=== PATIENT | male | born 1950 | race Caucasian/White ===

== ENCOUNTER 2017-09-06 15:26 | Observation (INO) | payer OTHER ==
[~2017-09-06] VITALS: Ht 182.9 cm; Wt 131.8 kg
--- NOTE | ~2017-09-06 | HEMODYNAMI ---
PATIENT:SANTIAGO GIBSON MEDICAL RECORD: [id number] : 46 LOCATION:[place] [address] ADMISSION DATE: 09/06/17 Generatedon:09/07/201714:04 Patient name: SANTIAGO GIBSON Patient #: [id number] SSN: : 1950 Date of study: 09/07/2017 Page: Of Hemodynamic Procedure Report Patient Data Patient Demographics Procedure consent was obtained First Name: SANTIAGO Gender: Male Last Name: PAIGE : 1950 Patient #: [id number] Age: 67 year(s) Race: Unknown Additional ID: [id number] Contact details Address: [place] [address] State: [facility] Zip code: [address] Past Medical History Allergies: No known allergies Admission Admission Data Admission Date: 09/06/2017 Admission Time: 15:26 Room #: [facility] Procedure Procedure Types Cath Procedure Diagnostic Procedure LHC LHC w/Coronaries Miscellaneous Procedures Moderate Sedation up to 30 minutes Procedure Description Procedure Date Procedure Date: 09/07/2017 Procedure Start Time: 13:47 Procedure End Time: 14:03 Procedure Staff Name Function Issac Victor MD Performing Physician Evelyn Tate RT Monitor Pina Jones RT Scrub Evan Chandra RN Nurse Procedure Data Cath Procedure Fluoroscopy Diagnostic fluoroscopy Total fluoroscopy Time: 3.7 time: 3.7 min min Diagnostic fluoroscopy Total fluoroscopy dose: dose: 1255 mGy 1255 mGy Contrast Material Contrast Material Type Amount (ml) Isovue 300 96 Entry Location Entry Primary Successful Side Size Upsize Upsize Entry Closure Flores ccessful Closure Location (Fr) 1 (Fr) 2 (Fr) Remarks Device Remarks Radial Right 6 Fr Mechanical artery Short Compression Estimated blood loss: 5 ml Diagnostic catheters Device Type Used For End Catheter Placement Terumo 5Fr Natanael 110cm LV Angiography catheter Terumo 5Fr Natanael 110cm Left Coronary catheter Angiography Diagnostic Terumo 5Fr Right Coronary Hometown 110cm catheter Angiography Procedure Complications No complications Procedure Medications Medication Administration Route Dosage Oxygen NC 2 l/min Lidocaine 2% added to field 20 Heparin Flush Bag added to field 2 bags (1000units/500ml NS) 0.9% NaCl I.V. 100 ml/hr Versed I.V. 1 mg Fentanyl I.V. 50 mcg Radial Cocktail I.A. 1 syringe (Verapomil 2mg/Nitro 400mcg/Heparin 1500units) Versed I.V. 1 mg Fentanyl I.V. 50 mcg Hemodynamics Rest Heart Rate: 81 (bpm) Pressure Samples Time Site Value (mmHg) Purpose Heart Use Rate(bpm) 13:51 LV 169/-3,10 EDP 83 13:51 AO 164/22(113) Pullback 84 13:51 LV 169/-1,13 Pullback 84 Gradients Valve Time Site 1 Site 2 Mean SEP/DFP Peak To Heart Use (mmHg) (sec/min) Peak Rate (mmHg) (bpm) Aortic 13:51 LV AO 2 3 5 84 169/-1,13 164/22(113) Calculations Valve P-P Mean Valve Index Valve Source Name Gradient Area Flow (cm2) Aortic 5 2 5 2 Snapshots Pre Cath Intra NCS Post Cath Vital Signs Time Heart Resp SPO2 etCO2 NIBP (mmHg) Rhythm Pain Sedation Rate (ipm) (%) (mmHg) Status Level (bpm) 13:42:25 80 18 95 40.5 153/97(129) NSR 0 (11) 10(A) , No pain 13:47:09 81 16 94 9.7 157/101(123) NSR 0 (11) 9(A) , No pain 13:51:52 84 19 94 20.2 141/81(106) NSR 0 (11) 9(A) , No pain 13:56:33 84 20 95 39 135/84(115) NSR 0 (11) 9(A) , No pain 14:01:18 81 19 94 29.2 135/83(111) NSR 0 (11) 10(A) , No pain Medications Time Medication Route Dose Verified Delivered Reason Notes Effectiveness by by 13:44:01 Oxygen NC 2 l/min Issac Buffie used for Valente Chandra metal framer 13:44:19 Lidocaine 2% added 20ml Issac Issac for local to vial Valente Victor MD anesthetic field 13:44:25 Heparin Flush added 2 bags Issac Issac used for Bag to Valente Victor MD procedure (1000units/500ml field NS) 13:44:34 0.9% NaCl I.V. 100 Issac Buffie Per ml/hr Valente Chandra RN physician 13:44:42 Versed I.V. 1 mg Issac Buffie for sedation Valente Chandra RN 13:44:47 Fentanyl I.V. 50 mcg Issac Buffie for sedation Valente Chandra RN 13:50:16 Radial Cocktail I.A. 1 Issac Issac for (Verapomil syringe Valente Victor MD vasodilation 2mg/Nitro 400mcg/Heparin 1500units) 13:50:21 Versed I.V. 1 mg Issac Buffie for sedation Valente Chandra RN 13:50:25 Fentanyl I.V. 50 mcg Issac Buffie for sedation Valente Chandra RN Procedure Log Time Note 13:21:31 Evelyn Counts RT(R) sent for patient. Start room use. 13:21:33 Time tracking: Regular hours 13:21:36 Plan of Care:Hemodynamics will remain stable., Cardiac rhythm will remain stable., Comfort level will be maintained., Respiratory function will remain adequate., Patient/ family verbilizes understanding of procedure., Procedure tolerated without complication., Recovers from procedure without complications.. 13:23:28 Patient received from Med II to CCL 1 Alert and oriented. Tansferred to table in Supine position. 13:23:29 Warm blankets applied, and timothy hugger turned on for patient comfort. 13:23:30 Correct patient and procedure confirmed by team. 13:23:31 Signed procedure consent form obtained from patient. 13:23:32 ECG and BP/O2 sat monitors applied to patient. 13:41:27 Vital chart was started 13:41:30 Rhythm: sinus rhythm 13:41:33 Full Disclosure recording started 13:41:39 H&P Date Dictated: 09/06/2017 Within 30 days and on chart.. 13:41:41 Pre-procedure instructions explained to patient. 13:41:42 Pre-op teaching completed and patient verbalized understanding. 13:41:43 Family in waiting room. 13:41:45 Patient NPO since Midnight. 13:41:50 Patient allergic to No known allergies 13:41:52 Is the patient allergic to Iodine/contrast media? No. 13:41:54 Is patient on blood thinner?No 13:41:56 Patient diabetic? Yes. 13:41:57 If diabetic: On Metformin? Yes 13:41:59 If on Metformin: Last Dose? 09/06/2017 13:42:02 Previous problem with sedation/anesthesia? No ? 13:42:03 Snore? Yes 13:42:06 Sleep apnea? Yes 13:42:07 Deviated septum? No 13:42:08 Opens mouth fully? Yes 13:42:09 Sticks out tongue? Yes 13:42:12 Airway obstruction? No ? 13:42:15 Dentures? Yes Out 13:42:19 Pre procedure: right dorsailis pedis pulse 2+ Normal; easily identifiable; not easily obliterated 13:42:21 Modified Arian's test Ulnar < 7 seconds 13:42:22 Patient pain scale 0/10 ?. 13:42:35 IV patent on arrival in right forearm with 0.9% NaCl at KVO. 13:42:41 IV right forearm D/C'd due to infiltration. 13:42:51 IV started by Evan Chandra RN inleft forearm with a 20 gauge IV catheter with 0.9% NaCl at KVO. 13:42:55 Lab results completed and on chart. 13:42:58 Right Radial & Right Groin area was prepped with chlora-prep and draped in sterile fashion 13:42:59 Alarms reviewed by R. N. 13:43:00 Sharps counted by scrub and verified by R.N. 13:43:03 Use device set Radial Dx 13:43:04 Acist Syringe opened to sterile field. 13:43:04 Medline Cath Pack opened to sterile field. 13:43:04 Bag Decanter opened to sterile field. 13:43:05 Terumo 6Fr Slender Glidesheath opened to sterile field. 13:43:05 St Munir 260cm J .035 wire opened to sterile field. 13:43:05 Acist Hand Control opened to sterile field. 13:43:06 Acist Manifold opened to sterile field. 13:43:06 Tegaderm 4 x 4 opened to sterile field. 13:43:06 MBrace Wrist Support opened to sterile field. 13:43:12 Final Timeout: patient, procedure, and site verified with staff and physician. All members of the team are in agreement. 13:43:14 Right Radial site verified by team. 13:43:17 Physical assessment completed. ASA score P 2 - A patient with mild systemic disease as per Issac Victor MD. 13:43:21 Sedation plan: IV Moderate Sedation Medication:Versed, Fentanyl 13:43:43 IV Extension Set opened to sterile field. 13:43:43 20g IV Catheter opened to sterile field. 13:43:44 20g IV Catheter opened to sterile field. 13:44:01 Oxygen 2 l/min NC was administered by Evan Chandra RN; used for procedure; 13:44:16 Cook 21G 4cm Radial Needle opened to sterile field. 13:44:19 Lidocaine 2% 20ml vial added to field was administered by Issac Victor MD; for local anesthetic; 13:44:25 Heparin Flush Bag (1000units/500ml NS) 2 bags added to field was administered by Issac Victor MD; used for procedure; 13:44:34 0.9% NaCl 100 ml/hr I.V. was administered by Evan Chandra RN; Per physician; 13:44:42 Versed 1 mg I.V. was administered by Evan Chandra RN; for sedation; 13:44:47 Baseline sample Acquired. 13:44:47 Fentanyl 50 mcg I.V. was administered by Evan Chandra RN; for sedation; 13:46:27 Zero performed for pressure channel P1 13:47:52 Procedure started. 13:47:58 Local anesthetic to right radial artery with Lidocaine 2% by Issac Victor MD.INITIAL ACCESS ONLY 13:49:39 A 6 Fr Short sheath was inserted into the Right Radial artery 13:50:16 Radial Cocktail (Verapomil 2mg/Nitro 400mcg/Heparin 1500units) 1 syringe I.A. was administered by Issac Victor MD; for vasodilation; 13:50:19 A Terumo 5Fr Natanael 110cm catheter was advanced over the wire and used for LV Angiography. 13:50:21 Versed 1 mg I.V. was administered by Evan Chandra RN; for sedation; 13:50:25 Fentanyl 50 mcg I.V. was administered by Evan Chandra RN; for sedation; 13:51:15 LV gram done using ZARATE 13:51:16 LV hemodynamics recorded. 13:51:19 Injector settings: Ml/sec: 5, Volume: 15, 13:51:27 EF : 60 % 13:53:00 A Terumo 5Fr Natanael 110cm catheter was advanced over the wire and used for Left Coronary Angiography. 13:55:03 Catheter removed. 13:55:36 A Diagnostic Terumo 5Fr Hometown 110cm catheter was advanced over the wire and used for Right Coronary Angiography. 13:59:10 Catheter removed. 13:59:29 Sheath removed intact; hemostasis achieved with Mechanical Compression to the Right Radial artery. 13:59:31 Procedure ended.(Physican Out) 13:59:45 Fluoroscopy time 03.70 minutes. 13:59:50 Fluoroscopy dose: 1255 mGy 13:59:50 Flurop Dose total: 1255 13:59:53 Contrast amount:Isovue 300 96ml. 13:59:54 Sharps counted by scrub and verified by R.N. 14:00:01 TR band inflated with 11cc of air. 14:00:02 Insertion/operative site no bleeding no hematoma. 14:00:14 Post right radial artery:stable, clean and dry 14:00:17 Post Procedure Pulses reassessed and unchanged 14:00:29 Post-procedure physical assessment completed. ASA score P 2 - A patient with mild systemic disease as per Issac Victor MD. 14:00:31 Post procedure rhythm: unchanged. 14:00:34 Estimated blood loss: 5 ml 14:00:36 Post procedure instruction explained to patient.Patient verbalizes understanding. 14:00:36 Patient needs reinforcement of post procedure teaching. 14:00:48 Procedure type changed to Cath procedure, Diagnostic procedure, LHC, LHC w/Coronaries, Miscellaneous Procedures, Moderate Sedation up to 30 minutes 14:00:53 Procedure Complication : No complications 14:00:55 See physician's report for complete and final results. 14:01:07 Terumo TR Band Large opened to sterile field. 14:01:39 Procedure and supply charges have been captured, reviewed, submitted and are correct. 14:03:03 Vital chart was stopped 14:03:05 Report given to PCU. 14:03:09 Patient transfered to PCU with Bed. 14:03:12 Procedure ended. 14:03:12 Full Disclosure recording stopped 14:03:25 End room use (Document Last) Device Usage Item Name Manufacture Quantity Catalog Hospital Part Current Minimal Lot# / Number Charge Number Stock Stock Serial# Code Acist Acist 1 29083 [id number] 401299 101124 20 Syringe [employer] Inc Medline Cardinal 1 [id number] 128669 54440 289177 5 Cath Pack Health Bag Microtek 1 2002S 376441 38864 740486 5 Decanter Medical Inc. Terumo 6Fr Terumo 1 [id number] 642693 607091 193459 [address] St Munir 1 580238 679196 395067 717988 30 260cm J .035 wire Acist Hand Acist 1 19734 996745 972573 394702 5 Control Medical Systems Inc Acist Acist 1 26893 690388 495902 836246 5 Manifold Medical Systems Inc Tegaderm 4 3M 1 1626W 404765 068004 614470 5 x 4 MBrace Advanced 1 140-0250-00 502693 00024 886603 5 Wrist Vascular Support Dynamics IV Hospira 1 20899-89 925440 84617 894164 5 Extension Set 20g IV B. Garzon 2 [id number] 701085 928267 843546 5 Catheter Cook 21G Cook [facility] 1 B69304 054842 657283 030030 5 4cm Radial Needle Terumo 5Fr Terumo 1 40-5023 147349 128327 294472 5 Natanael 110cm catheter Diagnostic Terumo 1 40-5013 865113 832255 192567 5 Terumo 5Fr [place]ometown 110cm catheter Terumo TR Terumo 1 [id number] 382750 755057 050458 40 Band Large Signature Audit Widener Stage Time Signature Unsigned Intra-Procedure 09/07/2017 Evelyn 2:04:05 PM Counts RT(R) Signatures Monitor : Evelyn Signature : Counts RT Date : Time : [facility] [address] [place] [id number]
--- NOTE | 2017-09-06 16:04 | NUR ---
RECEIVED PT TO ROOM 2116 VIA STRETCHER WITH EMS IN STABLE CONDITION VSS DENIES ANY CHEST PAIN AT THIS TIME SALINE LOCK INTACT TO RAC WITHOUT REDNESS OR EDEMA TELEMETRY APPLIED SR W/BBB RATE 80 NAD NOTED
--- NOTE | 2017-09-06 16:35 | NUR ---
Patient Name: SANTIAGO GIBSON Admission Status: Urgent Accout number: [id number] Admission Date: 09-06-2017 : 1950 Admission Diagnosis: Attending: ТАТЬЯНА SIDDIQUI Current LOS: 1 Anticipated DC Date: Planned Disposition: [facility] facility Primary Insurance: MEDICARE PART A ONLY PLANNED EXTERNAL PROVIDER: [facility] Discharge Planning Comments: * Is the patient Alert and Oriented? Yes 0 * How many steps to enter\exit or inside your home? NONE 0 * [facility] [place] [facility] * [facility] 0 * Preadmission Environment Home with Family 0 * ADLs Independent 0 * Equipment Crutch Other Walker Wheelchair 0 * Other Equipment [employer] [facility] [employer]QUIPMENT PROVIDER PROSTETHIC LOWER LEFT LEG 0 * List name and contact numbers for known caregivers / representatives who currently or will assist patient after discharge: JENNIFER WU, CHANDAN, 0 * Community resources currently utilized Home Health 0 * Please name any agencies selected above. [facility] FROM [place], NURSING ONLY ARRANGED BY [facility] 0 * Additional services required to return to the preadmission environment? No 0 * Can the patient safely return to the preadmission environment? Yes 0 * Has this patient been hospitalized within the prior 30 days at any hospital? No 0 CM RECEIVED CALL FROM ADMISSIONS, ADVISED THAT PT TRANSFERRED FROM [facility], HAS BEEN ADMITTED WITH MEDICARE PART A AND HAS [facility] BEN[facility]. CM SPOKE TO PT IN ROOM, DISCUSSED MEDICARE PART A BENEFITS AND COPAY WELL [facility] TRANSFER. PT REPORTS HE WOULD LIKE TO TRANSFER TO [facility] FOR FULL COVERAGE IF THEY HAVE A BED. PT REPORTS [facility] [place] [facility] TO [facility] HIM THERE BUT NO BED WAS AVAILABLE. PT REPORTS LIVING AT HOME INDEPENDENTLY, REPORTS HAVING ALL NEEDED MEDICAL EQUIPMENT AT HOME AND A [facility] NURSE CHECKS ON HIM ONCE WEEKLY AT HOME. PT DENIES DISCHARGE NEEDS, REPORTS HIS NEIGHBOR WILL PICK HIM UP WHEN DISCHARGED HOME. EZEQUIEL CALLED [facility], , PROVIDED [facility], AOD VERIFIED THE [facility] HAD BEEN CONTACTED [facility] THE [facility] AND THEY WERE ON DIVERSION AT THE TIME. AOD WILL CHECK ON BED AVAILABILITY AND IF THEY HAVE AVAILABLE BED FOR TRANSFER, WILL CALL PT'S NURSE ON MED 2 TO MAKE TRANSFER ARRANGMENTS. CM NOTIFIED REGISTRATION TO CHANGE PT'S INSURANCE STATUS FROM MEDICARE PART A TO [facility]. NO [facility] BED WAS AVAILABLE FOR TRANSFER PRIOR TO PT'S TRANSFER TO [place] FROM [facility]. [facility] A[facility] IS CHECKING [facility] BED AVAILABILITY AND WILL CALL NURSES STATION WHEN AND IF BED BECOMES AVAILABLE. PT IS WILLING FOR [facility] TRANSFER IF BED BECOMES AVAILABLE. Air And Water Filler: Sergio Brewer
[2017-09-06 16:44] LABS: BASOPHILS 0.5 % (0-2); EOSINOPHILS 2.8 % (0-7); HEMATOCRIT 44.7 % (42.0-54.0); HEMOGLOBIN 15.2 g/dL (13.5-17.5); IMMATURE GRANULOCYTES 0.4 % (0-5); MCH 30.8 pg (26.0-34.0); MCV 90.5 fL (80.0-100.0); MEAN PLATELET VOLUME 9.5 fL (7.4-10.4); MONOCYTES 11.4 % (2-11); NEUTROPHILS 62.9 % (40-80); PLATELET COUNT 216 10x3/uL (130-400); RBC 4.94 10x6/uL (4.20-6.10); RDW 12.9 % (11.5-14.5); WBC 8.5 10x3/uL (4.8-10.8)
[2017-09-06 16:52] VITALS: BP 142/74
[2017-09-06 17:21] LABS: ANION GAP 14.9 mmol/L (8-16); CALCIUM 8.6 mg/dL (8.5-10.1); CARBON DIOXIDE 24.6 mmol/L (21.0-32.0); CREATININE - SERUM 1.4 mg/dL (0.6-1.3); POTASSIUM - SERUM 4.5 mmol/L (3.5-5.1)
[2017-09-06 18:20] VITALS: BP 142/74; Ht 182.9 cm; Wt 131.8 kg
[2017-09-06] MEDS ORDERED: LANTUS SOL100 UNIT/1 SC (18:37)
[2017-09-06] MEDS ORDERED: GLUCOPHAGE1000 MG PO (18:38)
[2017-09-06] MEDS ORDERED: HUMALOG 30100 UNITS/ SC (18:40)
--- NOTE | 2017-09-06 19:36 | NUR ---
ASSESSMENT COMPLETE, A&O, RESPERATIONS EVEN ON O2 AT 2 LITER VIA NC. IV TO RIGHT AC SL, SITE CLEAN AND DRY. LEFT BKA NOTED, PROSTHESIS AT BED SIDE. PT DENIES PAIN OR NEEDS, BED LOW, CL IN REACH.
--- NOTE | 2017-09-06 20:10 | NUR ---
CONSENTS SIGNED FOR CARDIAC CATH TO BE DONE IN AM.
[2017-09-06 22:54] VITALS: BP 108/51
--- NOTE | 2017-09-07 00:01 | NUR ---
PACKAGE DRIER AT BED SIDE TO OBTAIN VITALS, WILL CONT TO MONITOR.
--- NOTE | 2017-09-07 02:57 | NUR ---
RESTING WITH EYES CLOSED, RESPERATIONS EVEN, NO S/S DISTRESS NOTED.
--- NOTE | 2017-09-07 04:21 | NUR ---
RESTING WITH EYES CLOSED, RESPERATIONS EVEN AND UNLABORED, NO S/S DISTRESS NOTED.
[2017-09-07 04:27] VITALS: BP 115/50
[2017-09-07 07:52] VITALS: BP 163/85
[2017-09-07 07:57] LABS: BASOPHILS 0.4 % (0-2); EOSINOPHILS 2.9 % (0-7); HEMATOCRIT 46.2 % (42.0-54.0); HEMOGLOBIN 15.7 g/dL (13.5-17.5); IMMATURE GRANULOCYTES 0.4 % (0-5); LYMPHOCYTES 27.1 % (15-50); MCV 91.1 fL (80.0-100.0); MEAN PLATELET VOLUME 9.3 fL (7.4-10.4); MONOCYTES 8.1 % (2-11); NEUTROPHILS 61.1 % (40-80); PLATELET COUNT 242 10x3/uL (130-400); RBC 5.07 10x6/uL (4.20-6.10); RDW 13.1 % (11.5-14.5); WBC 8.3 10x3/uL (4.8-10.8)
[2017-09-07 08:30] LABS: ANION GAP 12.5 mmol/L (8-16); CALCIUM 8.9 mg/dL (8.5-10.1); CREATININE - SERUM 1.6 mg/dL (0.6-1.3); POTASSIUM - SERUM 4.5 mmol/L (3.5-5.1)
[2017-09-07 11:59] VITALS: BP 117/65
--- NOTE | 2017-09-07 13:19 | NUR ---
PRE-OPS GIVEN. LEAVING FOR INTERIOR DESIGN TEACHER BY BED.
--- NOTE | 2017-09-07 14:20 | NUR ---
BACK FROM LEAK OPERATOR PARAFFIN PLANT. VS WNL. VS WNL RIGHT WRIST STABLE WITH TR BAND INTACT. WILL MONITOR.
--- NOTE | 2017-09-07 16:11 | NUR ---
BED REST UP. TR BAND DCD WITHOUT BLEEDING OT HEMATOMA NOTED. WILL MONITOR.
--- NOTE | 2017-09-07 16:40 | NUR ---
IV AND TELEMETRY DCD. DC PLANS GIVEN. UNDERSTANDING VOICED.
--- NOTE | 2017-09-07 18:33 | NUR ---
ESCORTED TO CAR BY W/C.
--- NOTE | 2017-09-08 08:40 | NUR ---
Patient Name: SANTIAGO GIBSON Encounter No: [id number] : 1950 Primary Insurance: [employer] Anticipated DC Date: 09-07-2017 Planned Disposition: HOME DCP follow-up note: CM REVIEWED CHART, PT DISCHARGED HOME YESTERDAY. CM CALLED [place] EXPEDITOR, , NOTIFIED [place] OF PT'S DISCHARGE HOME. Sergio Brewer, CASE MANAGEMENT
== END 2017-09-07 18:33 | disposition home or self-care (01) ==
LOC: D.M2 15:26 → OBSVTIME 15:27 → D.M2 09-07 18:33
PROVIDERS: ADMIT Internal Medicine Cardiovascular Disease
DX: I25.110 Atherosclerotic heart disease of native coronary artery with unstable angina pectoris (principal); I10 Essential (primary) hypertension; Z87.891 Personal history of nicotine dependence; E11.9 Type 2 diabetes mellitus without complications; Z79.4 Long term (current) use of insulin; K21.9 Gastro-esophageal reflux disease without esophagitis; I45.10 Unspecified right bundle-branch block